=== PATIENT | male | born 1970 | race Caucasian/White ===

== ENCOUNTER 2016-11-15 14:54 | Emergency (ER) | payer OTHER ==
[~2016-11-15] VITALS: Ht 170.2 cm; Wt 127.3 kg
[2016-11-15 15:01] VITALS: BP 168/102; TEMP 97.9
[2016-11-15] MEDS ORDERED: BACTRIM DS 8001 TAB PO ×2 (17:13→17:15)
[2016-11-15 17:33] VITALS: PULSE 104
== END 2016-11-15 17:34 | disposition home or self-care (01) ==
LOC: COL.ER 14:54
DX: L03.114 Cellulitis of left upper limb (principal); L30.9 Dermatitis, unspecified; F17.210 Nicotine dependence, cigarettes, uncomplicated